=== PATIENT | male | born 1985 | race Caucasian/White ===

== ENCOUNTER 2022-02-16 14:32 | Outpatient (REF) | payer OTHER, SELFPAY ==
--- NOTE | ~2022-02-16 | XR_ITS ---
EXAMINATION: XR KNEE, LEFT CLINICAL INFORMATION: Osteochondroma. COMPARISON: None. TECHNIQUE: 4 views of the left knee. FINDINGS: Along the posterior aspect of the distal femoral metaphysis, there is an expansile cortical lesion measuring 5.7 x 2.8 cm (CC by AP). This appears well corticated and contiguous with the marrow cavity. No periosteal reaction or cortical erosion. No acute fracture or dislocation. No joint space narrowing or marginal osteophytes. No osseous erosion. No significant joint effusion. 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
== END 2022-02-16 14:33 | disposition home or self-care (01) ==
LOC: HO.XRAY 14:32
PROVIDERS: PCP Family Medicine; Visit Provider Family Medicine
DX: D16.32 Benign neoplasm of short bones of left lower limb (principal)
CPT/HCPCS: 73564